=== PATIENT | female | born 2000 | race African-American/Black ===

== ENCOUNTER → 2019-06-06 | Outpatient (CLI) | payer SELFPAY ==
--- NOTE | 2019-06-06 17:18 | RADIOLOGY REPORT (SQ) ---
EXAM DESCRIPTION: U/S OB 14+ TRNABD 1GES W/O DOP COMPLETED DATE/TIME: 06/06/2019 3:00 pm REASON FOR STUDY: Z34.02 ENCNTR FOR SUPRVSN OF NORMAL FIRST PREG, SECOND TRIMESTER Z34.02 ENCNTR FO R SUPRVSN OF NORMAL FIRST PREG, SECOND TRIME COMPARISON: None. TECHNIQUE: Static and Dynamic grayscale imaging performed of gravid uterus using transabdominal appr oach. Additional selected color Doppler and spectral images recorded. All stored on PACS. LIMITATIONS: None. FINDINGS: FETUSES SEEN:1 EGA: 21 weeks 5 days Calculated using BPD,FL,HC,AC documented on images. 1 week and 3 days in excess of clinical dates. LYNEN: 10/12/2019 EFW: 442+/- 65 grams PERCENTILE: Not calculated. WILLIS: 15.6 cm. PLACENTA: Posterior. Grade 1. PRESENTATION: Breech. ANATOMY: HEART RATE: 171 beats per minute. FOUR CHAMBER HEART: Visualized. THREE VESSEL CORD: Yes. CORD INSERTION: Visualized. KIDNEYS AND BLADDER: Visualized. Appear normal. STOMACH: Visualized. Appears normal. SPINE: Normal as visualized. BRAIN AND LATERAL VENTRICLES: Appear normal. Only 1 lateral ventricle was able to be seen. OTHER: No other significant finding. MATERNAL ADNEXA: Maternal ovaries not visualized. CERVICAL LENGTH: 3.1 cm. Closed. OTHER: No other significant finding. IMPRESSION: LIVING INTRAUTERINE . ESTIMATED GESTATIONAL AGE 21 weeks 5 days. NO VISUALIZED ANOMALIES. Trimester of : Second trimester - 13 weeks 1 day to 27 weeks 6 days. TECHNICAL DOCUMENTATION: JOB ID: [id number] 2010 [employer]- All Rights Reserved Reading location - IP/workstation name: [email or web address]
== END ==
LOC: SP 13:40
PROVIDERS: ATTEND Nurse Practitioner Family
DX: Z34.02 Encounter for supervision of normal first pregnancy, second trimester (principal)
CPT/HCPCS: 76805

== ENCOUNTER 2019-10-10 17:10 | Outpatient (CLI) | payer MEDICAID ==
[2019-10-10 18:09] LABS: APPEARANCE,URINE CLEAR; BILIRUBIN,URINE NEGATIVE (NEGATIVE); COLOR,URINE YELLOW; GLUCOSE, URINE NEGATIVE (NEGATIVE); KETONES,URINE TRACE mg/dL (NEGATIVE); LEUKOCYTE ESTERASE,URINE TRACE (NEGATIVE); NITRITE,URINE NEGATIVE (NEGATIVE); PROTEIN,URINE NEGATIVE (NEGATIVE); URINE SPECIFIC GRAVITY 1.014; UROBILINOGEN,URINE NEGATIVE mg/dL (<2.0)
[2019-10-10 18:27] LABS: UR PRO/CREAT RATIO RESULT 0.1 mg/mg (0.0-0.2); URINE CREATININE 108.9 mg/dL (16-327); URINE PROTEIN 10.2 mg/dL (<12)
[2019-10-10 18:43] LABS: URINE AMPHETAMINES SCREEN NEGATIVE; URINE BARBITURATES SCREEN NEGATIVE; URINE BENZODIAZEPINES SCREEN NEGATIVE; URINE COCAINE SCREEN NEGATIVE; URINE MARIJUANA (THC) SCREEN NEGATIVE; URINE METHADONE SCREEN NEGATIVE; URINE PHENCYCLIDINE SCREEN NEGATIVE
[2019-10-10 19:06] LABS: ABSOLUTE LYMPHOCYTES (AUTO) 1.2 10^3/uL (0.5-4.7); ABSOLUTE MONOCYTES (AUTO) 0.5 10^3/uL (0.1-1.4); BASOPHILS % (AUTO) 0.1 % (0-2); EOSINOPHILS % (AUTO) 0.2 % (0-6); HEMATOCRIT 29.5 % (36.0-47.0); HEMOGLOBIN 10.1 g/dL (12.0-15.5); LYMPHOCYTES % (AUTO) 17.8 % (13-45); MEAN CORPUSCULAR HGB CONC 34.2 g/dL (32.0-36.0); MEAN CORPUSCULAR VOLUME 82 fl (80-97); MONOCYTES % (AUTO) 6.8 % (3-13); PLATELET COUNT 218 10^3/uL (150-450); RED CELL DISTRIBUTION WIDTH 15.3 % (11.5-14.0); SEGMENTED NEUTROPHILS % (AUTO) 75.1 % (42-78); TOTAL CELLS COUNTED % (AUTO) 100 %; WHITE BLOOD COUNT 6.7 10^3/uL (4.0-10.5)
[2019-10-10 19:24] LABS: ALBUMIN 3.1 g/dL (3.5-5.0); ALKALINE PHOSPHATASE 216 U/L (38-126); ANION GAP 5 (5-19); ASPARTATE AMINO TRANSFERASE 18 U/L (14-36); BILIRUBIN,TOTAL 0.5 mg/dL (0.2-1.3); BLOOD UREA NITROGEN 7 mg/dL (7-20); CALCIUM 8.8 mg/dL (8.4-10.2); CARBON DIOXIDE 21 mmol/L (22-30); CHLORIDE 106 mmol/L (98-107); GLUCOSE 103 mg/dL (75-110); POTASSIUM 3.6 mmol/L (3.6-5.0); TOTAL PROTEIN 6.3 g/dL (6.3-8.2); URIC ACID 3.3 mg/dL (2.5-6.2)
== END 2019-10-10 19:26 | disposition home or self-care (01) ==
LOC: LC 17:10
PROVIDERS: ATTEND Obstetrics & Gynecology
DX: O14.93 Unspecified pre-eclampsia, third trimester (principal); Z3A.39 39 weeks gestation of pregnancy
CPT/HCPCS: 59025; 80053; 80307; 81001; 82570; 84156; 84550; 85025

== ENCOUNTER 2019-10-18 03:07 | Outpatient (CLI) | payer MEDICAID ==
--- NOTE | 2019-10-18 03:09 | Non Stress Test Report ---
Non Stress Test Datetime Report Generated by CPN: 10/18/2019 03:09 DEMOGRAPHIC EGA NST: 39.0 VITAL SIGNS Temperature - NST: 99.2 Pulse - NST: 97 RESP - NST: 16 NBPSYS NST: 123 NBPDIA NST: 79 MONITORING Monitor Explained: Monitor Explained; Test Explained; Patient Verbalized Understanding Time on Monitor: 10/10/2019 17:34 Time off Monitor: 10/10/2019 19:23 NST Duration: 109 NST INTERVENTIONS NST Interventions: PO Hydration; Reposition Patient Physician Notified NST: Dr Reinier Physician Notified NST: Dr Reinier BABY A: [id number] BABY A Movement : Present Contraction Frequency : 0 FHR Baseline : 145 Accelerations : 15X15 Decelerations : None Variability : Moderate 6-25bpm NST Review: Meets Criteria for Reactive NST NST Review and Verified By : Yaa Newby RNC NST Results: Reactive NST REPORT Report Trigger: Send Report
[2019-10-18 03:31] LABS: APPEARANCE,URINE SLIGHTLY-CLOUDY; BILIRUBIN,URINE NEGATIVE (NEGATIVE); COLOR,URINE YELLOW; GLUCOSE, URINE NEGATIVE (NEGATIVE); KETONES,URINE NEGATIVE (NEGATIVE); LEUKOCYTE ESTERASE,URINE LARGE (NEGATIVE); NITRITE,URINE NEGATIVE (NEGATIVE); PROTEIN,URINE NEGATIVE (NEGATIVE); URINE SPECIFIC GRAVITY 1.014; UROBILINOGEN,URINE NEGATIVE mg/dL (<2.0)
[2019-10-18 04:15] LABS: URINE AMPHETAMINES SCREEN NEGATIVE; URINE BARBITURATES SCREEN NEGATIVE; URINE BENZODIAZEPINES SCREEN NEGATIVE; URINE COCAINE SCREEN NEGATIVE; URINE MARIJUANA (THC) SCREEN NEGATIVE; URINE METHADONE SCREEN NEGATIVE; URINE PHENCYCLIDINE SCREEN NEGATIVE
[2019-10-18] MEDS ORDERED: HYDROXYZINE PAMOATE 50 MG CAPSULE PO ONE (04:19)
[2019-10-18] MEDS ORDERED: ACETAMINOPHEN 325 MG TABLET PO ONE (04:19)
[2019-10-18] MEDS ORDERED: HYDROXYZINE PAMOATE 50 MG CAPSULE ONE (04:21)
[2019-10-18] MEDS ORDERED: ACETAMINOPHEN 325 MG TABLET ONE (04:21)
--- NOTE | 2019-10-18 04:33 | Non Stress Test Report ---
Non Stress Test Datetime Report Generated by CPN: 10/18/2019 04:32 DEMOGRAPHIC EGA NST: 40.1 INDICATION Indication for Study (NST) Other: lc MONITORING Monitor Explained: Monitor Explained; Test Explained; Patient Verbalized Understanding Time on Monitor: 10/18/2019 03:25 Time off Monitor: 10/18/2019 04:15 NST Duration: 50 NST INTERVENTIONS NST Interventions: PO Hydration; Reposition Patient Physician Notified NST: Dr Sinclair BABY A Movement : Present Contraction Frequency : rare FHR Baseline : 140 Accelerations : 15X15 Decelerations : None Variability : Moderate 6-25bpm NST Review: Meets Criteria for Reactive NST NST Review and Verified By : Bradley Johnson RN NST Results: Reactive NST REPORT Report Trigger: Send Report
== END 2019-10-18 04:35 | disposition home or self-care (01) ==
LOC: LC 03:07
PROVIDERS: ATTEND Obstetrics & Gynecology Gynecology
DX: O47.1 False labor at or after 37 completed weeks of gestation (principal)
CPT/HCPCS: 59025; 81005; 80307; J3490 ×2

== ENCOUNTER 2019-10-18 19:58 | Inpatient (IN) | payer MEDICAID ==
[2019-10-18 20:26] LABS: APPEARANCE,URINE CLOUDY; BILIRUBIN,URINE NEGATIVE (NEGATIVE); COLOR,URINE YELLOW; GLUCOSE, URINE NEGATIVE (NEGATIVE); KETONES,URINE NEGATIVE (NEGATIVE); LEUKOCYTE ESTERASE,URINE MODERATE (NEGATIVE); NITRITE,URINE NEGATIVE (NEGATIVE); PROTEIN,URINE 30 mg/dL (NEGATIVE); URINE SPECIFIC GRAVITY 1.021; UROBILINOGEN,URINE NEGATIVE mg/dL (<2.0)
[2019-10-18 20:42] LABS: URINE AMPHETAMINES SCREEN NEGATIVE; URINE BARBITURATES SCREEN NEGATIVE; URINE BENZODIAZEPINES SCREEN NEGATIVE; URINE COCAINE SCREEN NEGATIVE; URINE MARIJUANA (THC) SCREEN NEGATIVE; URINE METHADONE SCREEN NEGATIVE; URINE PHENCYCLIDINE SCREEN NEGATIVE
[2019-10-18] MEDS ORDERED: RINGERS SOLUTION,LACTATED 1,000 ML IV PRN (21:28)
[2019-10-18] MEDS ORDERED: RINGERS SOLUTION,LACTATED 1,000 ML IV ONE (21:28)
[2019-10-18] MEDS ORDERED: NALBUPHINE HCL INJ 10 MG/1 ML AMPULE INJ ONE (22:12)
[2019-10-18] MEDS ORDERED: PROMETHAZINE HCL INJ 25 MG/1 ML VIAL IV ONE (22:12)
[2019-10-18 22:14] LABS: ABSOLUTE MONOCYTES (AUTO) 0.6 10^3/uL (0.1-1.4); ABSOLUTE NEUT (AUTO) 7.8 10^3/uL (1.7-8.2); BASOPHILS % (AUTO) 0.1 % (0-2); EOSINOPHILS % (AUTO) 0.1 % (0-6); HEMOGLOBIN 10.4 g/dL (12.0-15.5); LYMPHOCYTES % (AUTO) 10.2 % (13-45); MEAN CORPUSCULAR HEMOGLOBIN 27.3 pg (27.0-33.4); MEAN CORPUSCULAR HGB CONC 33.6 g/dL (32.0-36.0); MEAN CORPUSCULAR VOLUME 81 fl (80-97); MONOCYTES % (AUTO) 6.9 % (3-13); PLATELET COUNT 219 10^3/uL (150-450); RED BLOOD COUNT 3.83 10^6/uL (3.72-5.28); RED CELL DISTRIBUTION WIDTH 15.4 % (11.5-14.0); SEGMENTED NEUTROPHILS % (AUTO) 82.7 % (42-78); TOTAL CELLS COUNTED % (AUTO) 100 %; WHITE BLOOD COUNT 9.5 10^3/uL (4.0-10.5)
[2019-10-18] MEDS ORDERED: OXYTOCIN/0.9 % SODIUM CHLORIDE 30 UNIT/500 ML RTUINJ ONE (22:16)
[2019-10-18] MEDS ORDERED: LIDOCAINE 1% INJ-PF (10 MG/ML) 30 ML SDV ONE (22:16)
[2019-10-18] MEDS ORDERED: OXYTOCIN 10 UNIT/ML VIAL ONE (22:16)
[2019-10-18] MEDS ORDERED: NALBUPHINE HCL INJ 10 MG/1 ML AMPULE ONE (22:16)
[2019-10-18] MEDS ORDERED: MISOPROSTOL 0.2 MG TABLET ONE (22:16)
[2019-10-18] MEDS ORDERED: PROMETHAZINE HCL INJ 25 MG/1 ML VIAL ONE (22:16)
[2019-10-19] MEDS ORDERED: EPHEDRINE SULFATE INJ 50 MG/1 ML AMPULE ONE (00:54)
[2019-10-19] MEDS ORDERED: BUPIVACAINE HCL 0.25 % INJ/PF (2.5 MG/1 ML) 30 ML VIAL ONE (00:55)
[2019-10-19] MEDS ORDERED: FENTANYL/BUPIVACAINE/NS/PF 300 MCG/150 ML RTUINJ EPI ONE (00:55)
--- NOTE | 2019-10-19 05:59 | Admission Physical ---
Datetime Report Generated by CPN: 10/19/2019 05:58 CURRENT ADMISSION Chief Complaint: Uterine Contractions Indication for Induction: Not Applicable Admit Impression : Term, Intrauterine ; Active Labor Admit Plan: Admit to Unit; Initiate Labor Protocol ALLERGIES Medication Allergies: No Medication Allergies: No Known Allergies (10/18/2019) Latex: No Latex Allergies OBSTETRICAL HISTORY EDC: 10/17/2019 00:00 : 1 Para: 0 Term: 0 : 0 SAB: 0 IAB: 0 Ectopic: 0 Livin Cesareans: 0 VBACs: 0 Multiple Births: 0 Gestational Diabetes: No Rh Sensitization: No Incompetent Cervix: No CARL: No Infertility: No ART Treatment: No Uterine Anomaly: No IUGR: No Hx Previous C/S: No Macrosomia: No Hx Loss/Stillborn: No PIH: No Hx : No Placenta Previa/Abruption: No Depression/PP Depression: No PTL/PROM: No Post Hemorrhage: No Current Procedures: Ultrasound; NST Obstetrical History Comments: G1- current SEE RECORDS Alcohol: No Marijuana : No Cocaine: No Other Illicit Drugs: No Cigarettes: Never Smoker. [id number] MEDICAL HISTORY Diabetes: No Blood Transfusion: No Pulmonary Disease (Asthma, TB): No Breast Disease: No Hypertension: No Materials Tech Surgery: No Heart Disease: No Hosp/Surgery: No Autoimmune Disorder: No Anesthetic Complications: No Kidney Disease: No Abnormal Pap Smear: No Neuro/Epilepsy: No Psychiatric Disorders: No Other Medical Diseases: No Hepatitis/Liver Disease: No Significant Family History: No Varicosities/Phlebitis: No Trauma/Violence : No Thyroid Dysfunction: No INFECTIOUS HISTORY Gonorrhea: No Genital Herpes: No Chlamydia: No Tuberculosis: No Syphilis: No Hepatitis: No HIV/AIDS Exposure: No Rash or Viral Illness: No HPV: No PHYSICAL EXAM General: Normal HEENT: Normal Neurologic: Normal Thyroid: Normal Heart: Normal Lungs: Normal Breast: Normal Back: Normal Abdomen: Normal Genitourinary Exam: Normal Extremities: Normal DTRs: Normal Pelvic Type: Adequate Vital Signs: Reviewed; Within Normal Limits VAGINAL EXAM Dilatation: 6 Effacement: 90 Station: -1 MEMBRANES Pooling: Negative Membranes: Intact FETUS A EGA: 40.2 Monitoring: External US FHR- Baseline: 150 Variability: Moderate 6-25bpm Accelerations: 15X15 Decelerations: None FHR Category: Category I Estimated Weight (gm): 3500 Presentation: Vertex PLANS FOR LABOR AND DELIVERY Labor and Delivery: None Pain Management: Medications Feeding Preference: Both Circumcision: Yes INFORMED CONSENT Signature: with User ID: [email or web address]
[2019-10-19] MEDS ORDERED: ZOLPIDEM TARTRATE 5 MG TABLET PO PRN (06:02)
[2019-10-19] MEDS ORDERED: PROMETHAZINE HCL 25 MG TABLET PO PRN (06:02)
[2019-10-19] MEDS ORDERED: PSEUDOEPHEDRINE HCL 30 MG TABLET PO PRN (06:02)
[2019-10-19] MEDS ORDERED: ACETAMINOPHEN 650 MG SUPP.RECT PR PRN (06:02)
[2019-10-19] MEDS ORDERED: MAGNESIUM HYDROXIDE SUSP 30 ML UDCUP PO PRN (06:02)
[2019-10-19] MEDS ORDERED: ACETAMINOPHEN 325 MG TABLET PO PRN (06:02)
[2019-10-19] MEDS ORDERED: MEASLES,MUMPS&RUBELLA VACC/PF 0.5 ML VIAL SUBCUT PRN (06:02)
[2019-10-19] MEDS ORDERED: PROMETHAZINE HCL 25 MG SUPP.RECT PR PRN (06:02)
[2019-10-19] MEDS ORDERED: DIBUCAINE 1% OINTMENT 28 GM TP PRN (06:02)
[2019-10-19] MEDS ORDERED: GLYCERIN/WITCH HAZEL LEAF 1 EACH MED..WIPE TP PRN (06:02)
[2019-10-19] MEDS ORDERED: DIPH/PERTUSS(ACELL)/TETANUS VAC/PF 0.5 ML SYR (>=10YO) IM PRN (06:02)
[2019-10-19] MEDS ORDERED: DIPHENHYDRAMINE HCL 25 MG CAPSULE PO PRN (06:02)
[2019-10-19] MEDS ORDERED: ACETAMINOPHEN WITH CODEINE #3 TABLET PO PRN ×2 (06:02)
[2019-10-19] MEDS ORDERED: PROMETHAZINE HCL INJ 25 MG/1 ML VIAL IV PRN (06:02)
[2019-10-19] MEDS ORDERED: BENZOCAINE/MENTHOL AEROSOL SPRAY 56 ML TOP PRN (06:02)
[2019-10-19] MEDS ORDERED: OXYTOCIN/0.9 % SODIUM CHLORIDE 30 UNIT/500 ML RTUINJ IV PRN (06:02)
[2019-10-19] MEDS ORDERED: NA PHOS,M-B/NA PHOS,DI-BA (ADULT) 133 ML ENEMA PR PRN (06:02)
[2019-10-19] MEDS ORDERED: IBUPROFEN 800 MG TABLET ONE (06:25)
[2019-10-19] MEDS: PRENATAL VITAMIN W DHA CAPSULE PO SCH (09:23)
[2019-10-19] MEDS: DOCUSATE SODIUM 100 MG CAPSULE PO SCH ×2 (09:23→21:29)
[2019-10-19] MEDS: SENNOSIDES/DOCUSATE 8.6-50 MG 1 EACH TABLET PO SCH (09:26)
[2019-10-19] MEDS: FAMOTIDINE 20 MG TABLET PO SCH ×2 (09:26→21:30)
[2019-10-19] MEDS: FERROUS SULFATE 325 MG TABLET PO SCH ×2 (09:26→21:30)
[2019-10-19] MEDS: IBUPROFEN 800 MG TABLET PO SCH (21:30)
[2019-10-20] MEDS: IBUPROFEN 800 MG TABLET PO SCH ×4 (05:01→22:50)
[2019-10-20 07:52] LABS: HEMOGLOBIN 8.8 g/dL (12.0-15.5); MEAN CORPUSCULAR HEMOGLOBIN 27.7 pg (27.0-33.4); MEAN CORPUSCULAR HGB CONC 34.1 g/dL (32.0-36.0); MEAN CORPUSCULAR VOLUME 81 fl (80-97); PLATELET COUNT 198 10^3/uL (150-450); RED BLOOD COUNT 3.19 10^6/uL (3.72-5.28); RED CELL DISTRIBUTION WIDTH 15.8 % (11.5-14.0); WHITE BLOOD COUNT 9.2 10^3/uL (4.0-10.5)
[2019-10-20] MEDS: FERROUS SULFATE 325 MG TABLET PO SCH ×2 (09:26→18:36)
[2019-10-20] MEDS: PRENATAL VITAMIN W DHA CAPSULE PO SCH (09:26)
[2019-10-20] MEDS: SENNOSIDES/DOCUSATE 8.6-50 MG 1 EACH TABLET PO SCH (09:26)
[2019-10-20] MEDS: DOCUSATE SODIUM 100 MG CAPSULE PO SCH ×2 (09:26→18:36)
[2019-10-20] MEDS: FAMOTIDINE 20 MG TABLET PO SCH ×2 (09:26→21:18)
--- NOTE | 2019-10-20 09:34 | PDOC PROGRESS REPORT ---
Subjective-OB Progress Note for:: 10/20/19 Subjective: Sitting up in bed, hsb and baby at BS, feeling good, , OOB to bathroom Physical Exam (OB) Vital Signs: Temp Pulse Resp BP Pulse Ox 98.2 F 67 18 127/83 H 100 10/20/19 08:17 10/20/19 08:17 10/20/19 08:17 10/20/19 08:17 10/20/19 08:17 Intake & Output 10/19/19 10/20/19 10/21/19 06:59 06:59 06:59 Intake Total 1640 Output Total 500 Balance 1140 Weight 112.9 kg - PIH/Pre-Eclampsia Clonus: Negative Headache: Absent Epigastric Pain: No Visual Changes: No - Lochia Lochia Amount: Small 10-25 ml Lochia Color: Rubra/Red - Abdomen Description: Soft, Round Fundal Description: Firm, Midline Fundal Height: u/u - u/2 Objective-Diagnostic Laboratory: 10/20/19 07:18 10/20/19 07:18 WBC 9.2 RBC 3.19 L Hgb 8.8 L Hct 26.0 L MCV 81 MCH 27.7 MCHC 34.1 RDW 15.8 H Plt Count 198 Assessment and Plan(PN) - Assessment and Plan (1) Spontaneous rupture of amniotic membranes Is this a current diagnosis for this admission?: Yes (2) Type O blood, Rh negative Is this a current diagnosis for this admission?: Yes (3) Vaginal delivery Is this a current diagnosis for this admission?: Yes (4) Anemia Qualifiers: Anemia type: iron deficiency Is this a current diagnosis for this admission?: Yes - Time Spent with Patient Time with patient: Less than 15 minutes Medications reviewed and adjusted accordingly: Yes - Disposition Anticipated Discharge: Home Within: within 24 hours
[2019-10-21] MEDS: IBUPROFEN 800 MG TABLET PO SCH ×2 (05:39→13:55)
[2019-10-21 08:23] VITALS: BP 132/86
[2019-10-21] MEDS: DOCUSATE SODIUM 100 MG CAPSULE PO SCH (09:18)
[2019-10-21] MEDS: PRENATAL VITAMIN W DHA CAPSULE PO SCH (09:19)
[2019-10-21] MEDS: FAMOTIDINE 20 MG TABLET PO SCH (09:19)
[2019-10-21] MEDS: FERROUS SULFATE 325 MG TABLET PO SCH (09:19)
[2019-10-21] MEDS: SENNOSIDES/DOCUSATE 8.6-50 MG 1 EACH TABLET PO SCH (09:21)
--- NOTE | 2019-10-21 10:39 | PDOC DISCHARGE SUMMARY ---
Impression - Admit/DC Date/PCP Admission Date/Primary Care Provider: 10/18/19 21:30 SUSHILA ARGUETA MD Discharge Date: 10/21/19 - Additional Information Resuscitation Status: Full Code Discharge Diet: Regular Discharge Activity: Balance Activity w/Rest, Pelvic Rest Referrals: SUSHILA ARGUETA MD [Primary Care Provider] - Home Medications: No122/Iron/Folic Acid [ Multi Tablet] 1 each PO DAILY 10/10/19 HPI Reason(s) for Admission: Onset of Labor Procedures: NST Intrapartum Procedure(s): Spontaneous Vaginal Delivery Results Laboratory Results: WBC 9.2 10^3/uL (4.0-10.5) 10/20/19 07:18 RBC 3.19 10^6/uL (3.72-5.28) L 10/20/19 07:18 Hgb 8.8 g/dL (12.0-15.5) L 10/20/19 07:18 Hct 26.0 % (36.0-47.0) L 10/20/19 07:18 MCV 81 fl (80-97) 10/20/19 07:18 MCH 27.7 pg (27.0-33.4) 10/20/19 07:18 MCHC 34.1 g/dL (32.0-36.0) 10/20/19 07:18 RDW 15.8 % (11.5-14.0) H 10/20/19 07:18 Plt Count 198 10^3/uL (150-450) 10/20/19 07:18 Lymph % (Auto) 10.2 % (13-45) L 10/18/19 22:01 Otoe % (Auto) 6.9 % (3-13) 10/18/19 22:01 Eos % (Auto) 0.1 % (0-6) 10/18/19 22:01 Baso % (Auto) 0.1 % (0-2) 10/18/19 22:01 Absolute Neuts (auto) 7.8 10^3/uL (1.7-8.2) 10/18/19 22:01 Absolute Lymphs (auto) 1.0 10^3/uL (0.5-4.7) 10/18/19 22:01 Absolute Monos (auto) 0.6 10^3/uL (0.1-1.4) 10/18/19 22:01 Absolute Eos (auto) 0.0 10^3/uL (0.0-0.6) 10/18/19 22:01 Absolute Basos (auto) 0.0 10^3/uL (0.0-0.2) 10/18/19 22:01 Seg Neutrophils % 82.7 % (42-78) H 10/18/19 22:01 Urine Color YELLOW 10/18/19 20:10 Urine Appearance CLOUDY 10/18/19 20:10 Urine pH 6.0 (5.0-9.0) 10/18/19 20:10 Ur Specific Whiting 1.021 10/18/19 20:10 Urine Protein 30 mg/dL (NEGATIVE) H 10/18/19 20:10 Urine Glucose (UA) NEGATIVE mg/dL (NEGATIVE) 10/18/19 20:10 Urine Ketones NEGATIVE mg/dL (NEGATIVE) 10/18/19 20:10 Urine Blood LARGE (NEGATIVE) H 10/18/19 20:10 Urine Nitrite NEGATIVE (NEGATIVE) 10/18/19 20:10 Urine Bilirubin NEGATIVE (NEGATIVE) 10/18/19 20:10 Urine Urobilinogen NEGATIVE mg/dL (<2.0) 10/18/19 20:10 Ur Leukocyte Esterase MODERATE (NEGATIVE) H 10/18/19 20:10 Urine Ascorbic Acid NEGATIVE (NEGATIVE) 10/18/19 20:10 Urine Opiates Screen NEGATIVE 10/18/19 20:10 Urine Methadone Screen NEGATIVE 10/18/19 20:10 Ur Barbiturates Screen NEGATIVE 10/18/19 20:10 Ur Phencyclidine Scrn NEGATIVE 10/18/19 20:10 Ur Amphetamines Screen NEGATIVE 10/18/19 20:10 U Benzodiazepines Scrn NEGATIVE 10/18/19 20:10 Urine Cocaine Screen NEGATIVE 10/18/19 20:10 U Marijuana (THC) Screen NEGATIVE 10/18/19 20:10 RPR NONREACTIVE (NONREACTIVE) 10/18/19 22:01 Blood Type O POSITIVE 10/18/19 22:01 Antibody Screen NEGATIVE 10/18/19 22:01 Plan Plan of Treatment: f/u at [facility] 4 wks Time Spent: Less than 30 Minutes
--- NOTE | 2019-10-24 14:16 | Delivery Summary ---
Del Sum A-C Datetime Report Generated by CPN: 10/24/2019 14:15 DELIVERY PERSONNEL DELIVERY PERSONNEL: [id number] Delivery Doctor:: Rebecca Hills MD Labor and Delivery Nurse:: Paula Bird RNinternet specialist Nurse:: COURTNEY Sahu Nursery Nurse:: Sissy Perera RN [employer] Sales Representative/MEDICAL DOCTOR: Hilda Ross, ST MATERNAL INFORMATION Delivery Anesthesia: Epidural Medications After Delivery: Pitocin 30 Units in 500ml NS/D5W Estimated Blood Loss (ml): 200 Delivery QBL: 409 Maternal Complications: None Provider Comments: I was called to the room for delivery. I arrived to the room < 1 min from phone call but baby had already delivered with what RN reports as the rupture of membranes. True knot noted in umbilical cord. LABOR SUMMARY EDC: 10/17/2019 00:00 No. Babies in Womb: 1 Attempted: No Labor Anesthesia: Epidural LABOR INFORMATION Reason for Induction: Not Applicable Onset of Labor: 10/18/2019 20:26 Complete Dilatation: 10/19/2019 05:08 Oxytocin: N/A Group B Beta Strep: neg Antibiotics # of Doses: 0 Antibiotics Time of Last Dose: 0 Name of Antibiotic Given: 0 Steroids Given: None Reason Steroids Not Administered: Not Applicable MEMBRANES Membranes Rupture Method: Spontaneous Rupture of Membranes: 10/19/2019 03:50 Length of Rupture (hr): 1.93 Amniotic Fluid Color: Light Meconium Amniotic Fluid Amount: Moderate Amniotic Fluid Odor: None STAGES OF LABOR Stage 1 hr: 8 Stage 1 min: 42 Stage 2 hr: 0 Stage 2 min: 38 Stage 3 hr: 0 Stage 3 min: 7 Total Time in Labor hr: 9 Total Time in Labor min: 27 VAGINAL DELIVERY Episiotomy: None Laceration Repair: Not Applicable BABY A INFORMATION Delivery Date/Time: 10/19/2019 05:46 Method of Delivery: Vaginal Method of Delivery: Vaginal Nurse Controlled Delivery: No Born in Route : No : N/A Forceps: N/A Vacuum Extraction: N/A Shoulder Dystocia : No PRESENTATION/POSITION BABY A Presentation: Cephalic Presentation: Cephalic Cephalic Presentation: Vertex Vertex Position: Left Occipital Anterior Breech Presentation: N/A PLACENTA INFORMATION BABY A Placenta Delivery Time : 10/19/2019 05:53 Placenta Method of Delivery: Spontaneous Placenta Status: Delivered SCORES BABY A Heart Rate 1 min: >100 bpm Resp Effort 1 min: Slow, Irregular Reflex Irritability 1 min: Cough or Sneeze or Pulls Away Muscle Tone 1 min: Active Motion Color 1 min: Body Icard, Extremities Blue SCORE 1 MIN: 8 Heart Rate 5 min: >100 bpm Resp Effort 5 min: Good Cry Reflex Irritability 5 min: Cough or Sneeze or Pulls Away Muscle Tone 5 min: Active Motion Color 5 min: Body Icard, Extremities Blue SCORE 5 MIN: 9 INFORMATION BABY A Gestational Age at Delivery: 40.2 Gestational Status: Full Term- 39- 40.6 Weeks Infant Outcome : Liveborn Infant Condition : Stable Sex: Male Sex: Male IDENTIFICATION BABY A Verification Date/Time: 10/19/2019 05:53 ID Band Number: [id number] Mother's Name Verified: Yes Infant RN Verifying Infant: J.Field, RN and A.Caron, RN WEIGHT/LENGTH BABY A Infant Birthweight (gm): 3760 Weight (lb): 8 Infant Weight (oz): 5 Length (in): 21.75 Length (cm): 55.25 CORD INFORMATION BABY A No. Cord Vessels: 3 Nuchal Cord : N/A True Knot: 1 Cord Blood Taken: Yes-For Eval (Mom's Blood Type - or O+) Suction: Mouth; Nose ASSESSMENT BABY A Skin to Skin: Yes SIGNATURES Signature: with User ID: [email or web address]
== END 2019-10-21 14:19 | disposition home or self-care (01) | DRG 807 ==
LOC: LC 19:58 → LR 21:30 → 2S 10-19 08:20
PROVIDERS: ADMIT Obstetrics & Gynecology; ATTEND Obstetrics & Gynecology
PROC: 10E0XZZ Delivery of Products of Conception, External Approach (ICD-10-PCS; principal; 2019-10-19)
PROC: 3E0234Z Introduction of Serum, Toxoid and Vaccine into Muscle, Percutaneous Approach (ICD-10-PCS; 2019-10-21)
DX: O99.02 Anemia complicating childbirth (principal); Z37.0 Single live birth; D50.9 Iron deficiency anemia, unspecified; O69.1XX0 Labor and delivery complicated by cord around neck, with compression, not applicable or unspecified; Z23 Encounter for immunization; Z67.40 Type O blood, Rh positive; Z3A.40 40 weeks gestation of pregnancy
CPT/HCPCS: 1967; 36415; 80307; 81005; 85025; 85027; 86592; 86850; 86900; 86901; 90715; 94760; C1758; J2300; J2550; J2590; J3010; J3490